=== PATIENT | male | born 2000 | race Caucasian/White ===

== ENCOUNTER 2022-10-24 21:18 | Emergency (ER) | payer BC ==
[~2022-10-24] VITALS: Ht 180.3 cm; Wt 86.4 kg
[2022-10-25 01:58] VITALS: BP 152/60; PULSE 95; TEMP 98.5
== END 2022-10-25 02:11 | disposition home or self-care (01) ==
LOC: COL.ER 21:18
DX: T18.128A Food in esophagus causing other injury, initial encounter (principal); Z28.310 Unvaccinated for COVID-19
CPT/HCPCS: J1100; J1610; J2405; J2704; J3010; J3360